=== PATIENT | male | born 1990 | race African-American/Black ===

== ENCOUNTER 2020-01-17 12:06 | Emergency (ER) | payer SELFPAY ==
[~2020-01-17] VITALS: Ht 162.6 cm; Wt 61.2 kg
[2020-01-17 12:19] VITALS: BP 145/86
[2020-01-17] MEDS ORDERED: Doxycycline Monohydrate 100mg ORAL ONE (12:30)
[2020-01-17] MEDS ORDERED: Azithromycin 250mg tab ORAL ONE (12:30)
[2020-01-17] MEDS ORDERED: Lidocaine 1% MPF 10mg/ml 5ml INJ ONE (12:30)
--- NOTE | 2020-01-17 12:35 | Emergency Room Report ---
History of Present Illness General Chief Complaint: Male Urogenital Problems Source: Patient Present Illness HPI Disclaimer: Please note that this report is being documented using [employer] technology. This can lead to erroneous entry secondary to incorrect interpretation by the dictating instrument. HPI: 30-year male brought in for evaluation after STD exposure and penile leisure. Patient states he had a call from an ex-girlfriend telling him to get tested but did not say for what. This morning he noticed a raised and somewhat tender lesion at the tip of his penis. No skin breakdown or ulceration. Denies purulence or drainage. Denies dysuria, hematuria. Denies fever, chills, abdominal pain or other symptoms. No prior history of STI. PMH: Reviewed PSH: Reviewed Allergies: Denied Social Hx: Viewed Allergies: Coded Allergies: No Known Allergies (Unverified , 01/17/20) COVID-19 Screening Contact w/high risk pt: No Experienced COVID-19 symptoms?: No COVID-19 Testing performed COUNTER CUTTER: No Nursing Documentation-PMH Past Medical History: No Stated History Review of Systems All Other Systems: negative except mentioned in HPI Physical Exam Vital Signs Date Time Temp Pulse Resp B/P (MAP) Pulse Ox O2 Delivery O2 Flow Rate FiO2 01/17/20 12:16 98.2 77 18 145/86 (105) 98 Room Air General: Awake and alert, no acute distress HEENT: NC/AT. EOMI. Resp: Normal work of breathing Abdomen: Soft, nontender, nondistended. : Uncircumcised male. Easily retractable foreskin. Slightly raised and erythematous lesion at the tip of the glans. No induration. No ulceration. Does not appear fluid-filled. No obvious vesicle. Skin: Intact. No abrasions, laceration or rash over the exposed skin MSK: Normal tone and bulk. Moving all extremities. No obvious deformity. Neuro: Awake and alert. Mentating appropriately Medical Decision Making Diagnostic Impression: Primary Impression: STD exposure ER Course Is a 30-year-old male presenting for evaluation of penile region and reported exposure to STI. Differential includes but is not limited to gonorrhea, chlamydia, syphilis, HSV, HPV, HIV among others. Patient resting empiric treatment for STDs. Will treat with ceftriaxone and azithromycin for treatment of gonococcal disease and chlamydia. Unfortunately pharmacy does not currently have penicillin in stock. We will treat with doxycycline for 2 weeks to cover for syphilis. Will refer to outpatient STD clinic for testing. He understands and agrees with this treatment plan. Last Vital Signs Date Time Temp Pulse Resp B/P (MAP) Pulse Ox O2 Delivery O2 Flow Rate FiO2 01/17/20 12:16 98.2 77 18 145/86 (105) 98 Room Air Disposition: HOME, SELF-CARE Condition: Stable Scripts Doxycycline Monohydrate* (DOXYCYCLINE MONOHYDRATE*) 100 Mg Capsule 100 MG ORAL Q12H for 14 Days, #28 CAP 0 Refills Prov: Everton Sy MD 01/17/20 Everton Sy MD Jan 17, 2020 12:35
[2020-01-17] MEDS ORDERED: DOXYCYCLINE MO100 MG ORAL (12:37)
[2020-01-17 12:47] VITALS: BP 145/86
== END 2020-01-17 12:47 | disposition home or self-care (01) ==
LOC: EMR 12:35
DX: Z20.2 Contact with and (suspected) exposure to infections with a predominantly sexual mode of transmission (principal)
CPT/HCPCS: 96372; 99283; J0696

== ENCOUNTER 2020-01-22 16:07 | Emergency (ER) | payer SELFPAY ==
[~2020-01-22] VITALS: Ht 165.1 cm; Wt 61.2 kg
[~2020-01-22 16:07] MED LIST: DOXYCYCLINE MO100 MG ORAL
--- NOTE | 2020-01-22 16:32 | NUR ---
ED Nurse Note: pt is at waiting room at this time.
--- NOTE | 2020-01-22 17:39 | NUR ---
ED Nurse Note: PT walked in to ed for C/O a lump to right testes with pain for few days. pt denies any pain during urination.
[2020-01-22 17:40] VITALS: BP 132/70
--- NOTE | 2020-01-22 17:43 | NUR ---
ED Nurse Note: PT unable to provide urine sample at this time. water offered and given.
--- NOTE | 2020-01-22 18:20 | NUR ---
ED Nurse Note: Ultrasound being done at bedside.
[2020-01-22] MEDS ORDERED: PERMETHRIN60 GM TOPIC (18:56)
--- NOTE | 2020-01-22 18:56 | Emergency Room Report ---
History of Present Illness General Chief Complaint: Male Urogenital Problems Source: Patient Present Illness HPI 30-year-old male with no signal past medical history who is here few days ago for treatment of possible sexually transmitted diseases here complaining of pressure in scrotum x2 days as well having genital warts and scabies in the same area. Patient reports that he came in contact with someone who has genital warts as well as scabies and is requesting treatment. Denies any penile discharge, urinary frequency and urgency. Denies any fever and chills, nausea vomiting, diffuse abdominal pain. 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 COVID-19 Screening: Negative COVID-19 COVID-19 Testing Source: throat Patient History Past Medical History: see triage record Past Surgical History: none Pertinent Family History: none Immunizations: UTD Reviewed Nursing Documentation: PMH: Agreed; PSxH: Agreed Nursing Documentation-PMH Past Medical History: No Stated History Review of Systems All Other Systems: negative except mentioned in HPI Physical Exam Vital Signs Date Time Temp Pulse Resp B/P (MAP) Pulse Ox O2 Delivery O2 Flow Rate FiO2 01/22/20 16:29 98.4 76 14 138/68 (91) 99 Room Air Sp02 EP Interpretation: reviewed, normal General Appearance: no apparent distress, alert, GCS 15, non-toxic Head: normocephalic, atraumatic Eyes: bilateral eye normal inspection, bilateral eye PERRL ENT: hearing grossly normal, normal pharynx, no angioedema, normal voice Neck: full range of motion, supple/symm/no masses Respiratory: chest non-tender, lungs clear, normal breath sounds, speaking full sentences Cardiovascular #1: regular rate, rhythm, no edema Gastrointestinal: normal bowel sounds, non tender, soft, non-distended, no guarding, no rebound Rectal: deferred Genitourinary: no CVA tenderness, other - Scabies rash noted in the size of and suprapubic, genital warts noted on penile area Musculoskeletal: back normal Neurologic: alert, motor strength/tone normal, oriented x3, sensory intact, responsive, speech normal Psychiatric: judgement/insight normal, memory normal, mood/affect normal, no suicidal/homicidal ideation Skin: normal color Lymphatic: no adenopathy Medical Decision Making PA Attestation All my diagnosis and treatment plans were reviewed ad discussed with my supervising physician Dr. Encinas Diagnostic Impression: Primary Impression: Genital warts Additional Impression: Scabies ER Course 30-year-old male with no signal past medical history who is here few days ago for treatment of possible sexually transmitted diseases here complaining of pressure in scrotum x2 days as well having genital warts and scabies in the same area. Patient reports that he came in contact with someone who has genital warts as well as scabies and is requesting treatment. Denies any penile discharge, urinary frequency and urgency. Denies any fever and chills, nausea vomiting, diffuse abdominal pain. Reports the patient was already diagnosed with genital warts by his primary doctor Ddx considered but are not limited to: UTI, genital warts, torsion, hydrocele, epididymitis, varicocele Vital signs: are WNL, pt. is afebrile H&PE are most consistent with: Genital warts, scabies ORDERS: UA, scrotal ultrasound, permethrin ED INTERVENTIONS: None required at this time. DISCHARGE: At this time pt. is stable for d/c to home. Will provide printed patient care instructions, and any necessary prescriptions. Care plan and follow up instructions have been discussed with the patient prior to discharge. Advise d patient to follow-up with fiberglass boat assembly supervisor for cryotherapy as patient also has warts on her arms. If worsening symptoms return to the emergency room CT/MRI/US Diagnostic Results CT/MRI/US Diagnostic Results : Imaging Test Ordered: Scrotal ultrasound Impression TECHNIQUE: Real-time ultrasound of the scrotum with color Doppler and image documentation. COMPARISON: No relevant prior studies available. FINDINGS: Right testicle: Right testis measures about 3.2 x 1.8 x 4.1 cm. Questionable microcalcifications No torsion. Left testicle: Left testis measures about 3.4 x 1.6 x 3.1 cm. Questionable microcalcifications No torsion. Epididymides: Unremarkable. Scrotum: Unremarkable. IMPRESSION: No acute findings in the scrotum. Suspect bilateral testicular microcalcifications. Last Vital Signs Date Time Temp Pulse Resp B/P (MAP) Pulse Ox O2 Delivery O2 Flow Rate FiO2 01/22/20 17:40 98.0 79 18 132/70 99 01/22/20 16:29 Room Air Disposition: HOME, SELF-CARE Condition: Stable Scripts Permethrin* (ELIMITE*) 60 Gm Cream..g. 1 APPLIC TOPIC ONCE, #60 GM 0 Refills Apply cream from head to toe; leave on for 8-14 hours before washing off with water; may reapply in 1 week if live mites appear. Prov: Rajat Zamorano 01/22/20 Referrals: NOT CHOSEN IPA/,REFERRING (PCP) Patient Instructions: Genital Warts, Scabies, Pediatric Additional Instructions: Follow-up with fiberglass boat assembly supervisor for cryotherapy, take medication as directed, if worsening symptoms return to the emergency room Rajat Zamorano Jan 22, 2020 18:55
[2020-01-22 19:05] VITALS: BP 128/74
--- NOTE | 2020-01-22 19:05 | NUR ---
ER DISCHARGE NOTE: Patient is cleared to be discharged per ERMD, pt is aox4, on room air, with stable vital signs. pt was given dc and prescription instructions, pt was able to verbalize understanding, pt id band removed without complications. pt is able to ambulate with steady gait. pt took all belongings.
--- NOTE | 2020-01-22 19:21 | Diagnostic Imaging Report ---
EXAM: US Scrotum CLINICAL HISTORY: MASS TECHNIQUE: Real-time ultrasound of the scrotum with color Doppler and image documentation. COMPARISON: No relevant prior studies available. FINDINGS: Right testicle: Right testis measures about 3.2 x 1.8 x 4.1 cm. Questionable microcalcifications No torsion. Left testicle: Left testis measures about 3.4 x 1.6 x 3.1 cm. Questionable microcalcifications No torsion. Epididymides: Unremarkable. Scrotum: Unremarkable. IMPRESSION: No acute findings in the scrotum. Suspect bilateral testicular microcalcifications.
== END 2020-01-22 19:05 | disposition home or self-care (01) ==
LOC: EMR 17:33
DX: B86 Scabies (principal); B07.9 Viral wart, unspecified
CPT/HCPCS: 76870; 99283